=== PATIENT | female | born 1975 | race Caucasian/White ===

== ENCOUNTER 2016-07-15 20:57 | Emergency (ER) | payer OTHER | END 2016-07-15 21:35 | disposition home or self-care (01) | LOC: ER1 20:57 | DX: R21 Rash and other nonspecific skin eruption (principal); F17.210 Nicotine dependence, cigarettes, uncomplicated; N83.209 Unspecified ovarian cyst, unspecified side | CPT/HCPCS: 99282 ==

== ENCOUNTER 2021-02-03 12:22 | Emergency (ER) | payer OTHER ==
[2021-02-03] MEDS ORDERED: IBUPROFEN600 MG PO (14:33)
== END 2021-02-03 14:38 | disposition home or self-care (01) ==
LOC: ER1 12:22
DX: S92.351A Displaced fracture of fifth metatarsal bone, right foot, initial encounter for closed fracture (principal); W19.XXXA Unspecified fall, initial encounter; Y92.009 Unspecified place in unspecified non-institutional (private) residence as the place of occurrence of the external cause
CPT/HCPCS: 73610; 73630; 99283

== ENCOUNTER → 2021-03-01 | Outpatient (CLI) | payer OTHER ==
[~2021-03-01] MED LIST: IBUPROFEN600 MG PO
== END ==
LOC: KOH-I 15:31
DX: M25.571 Pain in right ankle and joints of right foot (principal)
CPT/HCPCS: 73610; 73630

== ENCOUNTER → 2021-03-04 | Outpatient (CLI) | payer OTHER | LOC: KOH-I 08:51 | DX: S92.351A Displaced fracture of fifth metatarsal bone, right foot, initial encounter for closed fracture (principal); S92.321A Displaced fracture of second metatarsal bone, right foot, initial encounter for closed fracture; S92.331A Displaced fracture of third metatarsal bone, right foot, initial encounter for closed fracture | CPT/HCPCS: 73700 ==

== ENCOUNTER → 2021-04-04 | Outpatient (CLI) | payer OTHER | LOC: KOH-I 15:32 | DX: S92.351A Displaced fracture of fifth metatarsal bone, right foot, initial encounter for closed fracture (principal) | CPT/HCPCS: 73630 ==